=== PATIENT | female | born 1995 | race American Indian/Alaskan Native ===

== ENCOUNTER 2020-04-17 04:27 | Emergency (ER) | payer SELFPAY ==
[2020-04-17 05:33] VITALS: BP 117/62
[2020-04-17] MEDS ORDERED: NEOMY 3.5 MG/BACIT 400 UNITS/POLY B 5000 UNITS/GM OINT PACKET TP ONE (07:03)
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
== END 2020-04-17 07:17 | disposition home or self-care (01) ==
LOC: ED 04:27
DX: T22.221A Burn of second degree of right elbow, initial encounter (principal); X08.8XXA Exposure to other specified smoke, fire and flames, initial encounter; Y93.89 Activity, other specified; Y92.89 Other specified places as the place of occurrence of the external cause; Y99.8 Other external cause status
CPT/HCPCS: 99282; A6250